=== PATIENT | male | born 1945 | race Caucasian/White ===

== ENCOUNTER 2019-01-06 08:24 | Emergency (ER) | payer OTHER, MEDICAID ==
[~2019-01-06] VITALS: Ht 172.7 cm; Wt 102.5 kg
[2019-01-06 08:38] VITALS: BP_SYST 128
[2019-01-06] MEDS ORDERED: MELA5TAB21 PO (08:49)
[2019-01-06] MEDS ORDERED: ZOLP10TA2 PO (08:49)
[2019-01-06] MEDS ORDERED: NIZCR60 TP (08:49)
[2019-01-06] MEDS ORDERED: CLOB15CR4 TP (08:49)
[2019-01-06] MEDS ORDERED: ASA81 PO (08:49)
[2019-01-06] MEDS ORDERED: TRIA15CR3 TP (08:49)
[2019-01-06] MEDS ORDERED: MIRT15TA7 PO (08:49)
[2019-01-06] MEDS ORDERED: ALBMDI INH (08:49)
[2019-01-06] MEDS ORDERED: CIPR-211 PO (08:49)
[2019-01-06] MEDS ORDERED: NACL 0.9% 1,000 ML IV ONE (09:00)
[2019-01-06] MEDS ORDERED: LORazepam 2 MG/ML VIAL (FOR ER USE) IVP ONE (09:00)
[2019-01-06] MEDS ORDERED: KETOROLAC TROMETHAMINE 30 MG VIAL IVP ONE (09:00)
[2019-01-06] MEDS ORDERED: QUET200T5 PO (09:09)
[2019-01-06] MEDS ORDERED: LOSA50TA3 PO (09:09)
[2019-01-06] MEDS ORDERED: DESVENLAFAXINE PO (09:09)
[2019-01-06] MEDS ORDERED: DICL50TA9 PO (09:09)
[2019-01-06 09:28] LABS: BASOPHILS # (AUTO) 0.1 K/uL (0.0-0.2); BASOPHILS % (AUTO) 0.9 % (0.0-2.0); EOSINOPHILS # (AUTO) 0.1 K/uL (0.0-0.4); EOSINOPHILS % (AUTO) 0.9 % (0.0-4.0); HEMATOCRIT 38.4 % (36-54); LYMPHOCYTES # (AUTO) 0.9 K/uL (1.0-5.5); LYMPHOCYTES % (AUTO) 9.3 % (20.5-51.5); MEAN CORPUSCULAR HEMOGLOBIN 31 pg (27-31); MEAN CORPUSCULAR HGB CONC 34 % (32-36); MEAN CORPUSCULAR VOLUME 91 fL (79.0-98.0); MONOCYTES # (AUTO) 0.8 K/uL (0.0-1.0); MONOCYTES % (AUTO) 8.2 % (1.7-9.3); NEUTROPHILS # (AUTO) 8.1 K/uL (1.8-7.7); NEUTROPHILS % (AUTO) 80.7 % (40.0-70.0); PLATELET COUNT (AUTO) 366 K/uL (130-430); RED BLOOD CELL COUNT(AUTO) 4.23 MIL/uL (4.2-6.2); RED CELL DISTRIBUTION WIDTH 14.2 % (9.0-15.0)
[2019-01-06 09:38] LABS: ANION GAP 9 (5-15); CALCIUM 9.4 mg/dL (8.4-11.0); CHLORIDE 101 mmol/L (98-107); CREATININE 1.59 mg/dL (0.55-1.30); GLUCOSE 120 mg/dL (70-99); POTASSIUM 4.6 mmol/L (3.5-5.1); SODIUM SERUM 136 mmol/L (136-145); UREA NITROGEN, BLOOD 18 mg/dL (8-21)
[2019-01-06 09:43] LABS: ALANINE AMINOTRANSFERASE 14 U/L (12-78); ALBUMIN 3.6 g/dL (3.4-4.8); ASPARTATE AMINOTRANSFERASE 19 U/L (10-37); TOTAL BILIRUBIN 0.5 mg/dL (0.0-1.0)
[2019-01-06] MEDS ORDERED: cefTRIAXone 1 GM IVPB PREMIX 50 ML IV ONE ×2 (11:00→11:25)
[2019-01-06 11:16] LABS: BILIRUBIN,URINE NEGATIVE (NEGATIVE); BLOOD, URINE 2+ (NEGATIVE); CLARITY/URINE SL HAZY (CLEAR); COLOR,URINE YELLOW (YELLOW); GLUCOSE,URINE NEGATIVE (NEGATIVE); KETONES,URINE NEGATIVE (NEGATIVE); LEUKOCYTE ESTERASE ,URINE 3+ (NEGATIVE); NITRITE, URINE NEGATIVE (NEGATIVE); PROTEIN URINE 1+ (NEGATIVE); UROBILINOGEN,URINE 0.2 (0.2-1.0)
[2019-01-06 11:30] LABS: BACTERIA,URINE MANY /HPF (None Seen); WBC,URINE 50-80 /HPF (0-3)
[2019-01-06 11:31] LABS: MUCUS,URINE None Seen /LPF (None Seen)
[2019-01-06 12:09] VITALS: BP_SYST 140
== END 2019-01-06 12:09 | disposition home or self-care (01) ==
LOC: SED 08:24
DX: N39.0 Urinary tract infection, site not specified (principal); I10 Essential (primary) hypertension; Z79.82 Long term (current) use of aspirin; Z79.899 Other long term (current) drug therapy
CPT/HCPCS: 36415; 71045; 80053; 81000; 83605; 84484; 85025; 85610; 85730; 87086; 87186; 93005; 96365; 96375; 99284; J0696; J1885; J2060; J7030

== ENCOUNTER 2019-03-05 11:35 | Inpatient (IN) | payer OTHER, MEDICAID ==
[~2019-03-05] VITALS: Ht 167.6 cm; Wt 88.9 kg
[2019-03-05 11:35] VITALS: BP_SYST 120
[~2019-03-05 11:35] MED LIST: ALBMDI INH; ASA81 PO; CIPR-211 PO; CLOB15CR4 TP; DESVENLAFAXINE PO; DICL50TA9 PO; LOSA50TA3 PO; MELA5TAB21 PO; MIRT15TA7 PO; NIZCR60 TP; QUET200T5 PO; TRIA15CR3 TP; ZOLP10TA2 PO
--- NOTE | 2019-03-05 11:35 | NUR ---
Patient triaged and placed in waiting room. VSS and patient appears in no acute distress at this time. Accompanied by FAMILY, awaiting available bed, and MD notified of need for MSE.
[2019-03-05] MEDS ORDERED: PIPERACILLIN/TAZO 3.38 GM in NS 50 ML IV ONE (16:00)
[2019-03-05] MEDS ORDERED: PIPERACILLIN/TAZOBACTAM 3.375 GM/VIAL (ZOSYN) IV ONE (16:21)
[2019-03-05 16:27] LABS: BASOPHILS # (AUTO) 0.1 K/uL (0.0-0.2); BASOPHILS % (AUTO) 0.5 % (0.0-2.0); EOSINOPHILS # (AUTO) 0.5 K/uL (0.0-0.4); EOSINOPHILS % (AUTO) 2.7 % (0.0-4.0); HEMATOCRIT 34.7 % (36-54); HEMOGLOBIN 11.6 g/dL (14.0-18.0); LYMPHOCYTES # (AUTO) 1.9 K/uL (1.0-5.5); MEAN CORPUSCULAR HEMOGLOBIN 28 pg (27-31); MEAN CORPUSCULAR HGB CONC 33 % (32-36); MEAN CORPUSCULAR VOLUME 85 fL (79.0-98.0); MONOCYTES # (AUTO) 1.5 K/uL (0.0-1.0); MONOCYTES % (AUTO) 8.8 % (1.7-9.3); NEUTROPHILS # (AUTO) 13.4 K/uL (1.8-7.7); PLATELET COUNT (AUTO) 489 K/uL (130-430); RED BLOOD CELL COUNT(AUTO) 4.11 MIL/uL (4.2-6.2); RED CELL DISTRIBUTION WIDTH 14.6 % (9.0-15.0); WHITE BLOOD COUNT (AUTO) 17.4 K/uL (4.8-10.8)
--- NOTE | 2019-03-05 16:27 | NUR ---
Pt moved to bed 04
--- NOTE | 2019-03-05 16:30 | NUR ---
Pt c/o back pain and elevated WBC per PMD.
[2019-03-05 16:42] LABS: ANION GAP 10 (5-15); CALCIUM 8.9 mg/dL (8.4-11.0); CHLORIDE 103 mmol/L (98-107); CREATININE 1.17 mg/dL (0.55-1.30); GLUCOSE 102 mg/dL (70-99); POTASSIUM 3.7 mmol/L (3.5-5.1); SODIUM SERUM 138 mmol/L (136-145); UREA NITROGEN, BLOOD 20 mg/dL (8-21)
[2019-03-05 16:45] LABS: INR 1.1 (0.80-1.20); PROTHROMBIN TIME 10.6 SECS (9.5-12.5)
[2019-03-05 16:47] LABS: ALANINE AMINOTRANSFERASE 18 U/L (12-78); ALBUMIN 2.6 g/dL (3.4-4.8); ASPARTATE AMINOTRANSFERASE 15 U/L (10-37); LIPASE 126 U/L (73-393); TOTAL BILIRUBIN 0.3 mg/dL (0.0-1.0)
--- NOTE | 2019-03-05 17:20 | NUR ---
Patient to ER bed 5 to gown for evaluation. Side rails up.
--- NOTE | 2019-03-05 17:40 | NUR ---
Pt medicated tolerated well. Continuing to monitor
[2019-03-05] MEDS ORDERED: DIPHENHYDRAMINE INJ 50 MG/ML VIAL IVP ONE (17:45)
[2019-03-05] MEDS ORDERED: MORPHINE 4 MG/ML INJ. SYRINGE IVP ONE (17:45)
[2019-03-05] MEDS ORDERED: PIPERACILLIN/TAZO 3.375 GM in NS 50 ML IV ONE (18:00)
--- NOTE | 2019-03-05 18:20 | NUR ---
Patient transported to radiology via gurney, accompanied by rad staff.
--- NOTE | 2019-03-05 18:35 | NUR ---
Returned from radiology, back to [facility].
--- NOTE | 2019-03-05 19:00 | NUR ---
Pt resting no acute distress noted.
[2019-03-05 19:38] LABS: BILIRUBIN,URINE NEGATIVE (NEGATIVE); BLOOD, URINE 1+ (NEGATIVE); CLARITY/URINE SL HAZY (CLEAR); COLOR,URINE YELLOW (YELLOW); GLUCOSE,URINE NEGATIVE (NEGATIVE); KETONES,URINE NEGATIVE (NEGATIVE); LEUKOCYTE ESTERASE ,URINE 3+ (NEGATIVE); NITRITE, URINE NEGATIVE (NEGATIVE); PH,URINE 5.5 (5.0-8.0); PROTEIN URINE NEGATIVE (NEGATIVE); UROBILINOGEN,URINE 0.2 (0.2-1.0)
[2019-03-05 19:50] LABS: BACTERIA,URINE MODERATE /HPF (None Seen); MUCUS,URINE None Seen /LPF (None Seen); WBC,URINE 50-80 /HPF (0-3); YEAST,URINE Moderate /HPF (None Seen)
--- NOTE | 2019-03-05 20:00 | NUR ---
Patient will be admitted to care of . Admitted to telemetry unit. Will go to room 125B. Summary report printed. Report will be given at bedside.
--- NOTE | 2019-03-05 20:10 | NUR ---
ADMISSION: The patient, ALIYA MENA, 73 y/o, M admitted by MARIA INES CUELLO MD,with the diagnosis of PYELONEPHRITIS ,TO 130 A
[2019-03-05 21:00] VITALS: BP_SYST 122
[2019-03-05] MEDS ORDERED: ALBUTEROL SULFATE 0.083% 2.5 MG/3 ML VIAL.NEB INH PRN (21:00)
[2019-03-05] MEDS ORDERED: CLOBETASOL PROPIONATE 0.05% 15 GM CREAM..G. TP SCH (21:00)
[2019-03-05] MEDS: QUEtiapine FUMARATE 200 MG TAB.SR.24H PO SCH (21:00)
[2019-03-05] MEDS ORDERED: ACETAMINOPHEN 325 MG TABLET PO PRN (21:00)
[2019-03-05] MEDS: MELATONIN 5 MG PO SCH (21:00)
[2019-03-05] MEDS ORDERED: HYDROcodone/ACETAMIN 5-325 MG TAB (NORCO/ VICODIN) PO PRN (21:00)
[2019-03-05] MEDS ORDERED: ONDANSETRON HCL 4 MG/2 ML VIAL IVP PRN (21:00)
--- NOTE | 2019-03-05 21:18 | NUR ---
patient admitted to 130 bed a . fixed in bed and made comfortable. offensive coordinator applied. with call light within reach.no furthner chest pain claimed
[2019-03-05 21:34] VITALS: BP_SYST 110
[2019-03-05] MEDS ORDERED: NORMAL SALINE 5 ML DISP.SYRIN IVF SCH (22:00)
[2019-03-05] MEDS: MIRTAZAPINE 15 MG TABLET PO SCH (22:02)
[2019-03-05] MEDS: ZOLPIDEM TARTRATE 5 MG TABLET PO PRN (22:03)
[2019-03-05] MEDS: NORMAL SALINE 5 ML DISP.SYRIN IVF SCH (22:04)
[2019-03-05] MEDS ORDERED: LEVOFLOXACIN 500 MG/D5W 100 ML IV ONE (22:17)
--- NOTE | 2019-03-05 22:41 | NUR ---
seroquel xr not available,. will inform physician about it,
[2019-03-05 22:50] VITALS: BP_SYST 110
[2019-03-05] MEDS: LEVOFLOXACIN 500 MG/D5W 100 ML IV SCH (22:59)
[2019-03-05] MEDS ORDERED: FLU VACC TS2019(65UP)/MF59C/PF 45 MCG/0.5 ML SYRINGE I.M. PRN (23:30)
--- NOTE | 2019-03-06 00:51 | NUR ---
CONSULTATION PAGED/CALLED Reason for Consultation: PYELONEHRITIS Person Who was Notified: MJ Consulting Physician: CHUCK Supervisor Shearing Specialty: ID Ordering Physician: Bertha CUELLO
--- NOTE | 2019-03-06 01:02 | NUR ---
DR CUELLO WITH ORDERS TO DISCONTINUE THE PRESENT CASPER CATHETER AND REINSERT A NEW ONE
[2019-03-06] MEDS: LORazepam 2 MG/ML VIAL IVP PRN (01:36)
--- NOTE | 2019-03-06 01:38 | NUR ---
stat CONSULTATION PAGED/CALLED Reason for Consultation:kandy alaniz Person Who was Notified: clive Consulting Physician: leann Spangler Roll Edge Stitcher Hand Specialty: urology Ordering Physician: ashlie cheema Addendum: 03/06/19 at 0142 by Carey Ware CNA reason for accident removal super pubic cather . the consult will be for Kandy Alaniz
--- NOTE | 2019-03-06 01:40 | NUR ---
SUPRAPUBIC CATHETER WAS ACCIDENTALLY PULLED OUT AND DR CUELLO PAGE AND ORDERED A UROLOGY CONSULT. WITH ORDERS FOR UROLOGY CONSULT DR LEMOS. AND PAGED, AWAITING RESPONSE
[2019-03-06 01:42] VITALS: BP_SYST 142
[2019-03-06 02:06] VITALS: BP_SYST 123
--- NOTE | 2019-03-06 02:09 | NUR ---
paged paged the doctor talent development consultant for Lex Spangler, who is Jitendra Moran his PA regarding stat consult
--- NOTE | 2019-03-06 02:36 | NUR ---
MODESTO HERNANDEZ MA CALLED BACK AND INFORMED THAT THE SUPRAPUBIC CATHETER WAS ACCIDENTALLY DISCONTINUED AND PATIENT HAS NO CATHETER AT THIS TIME. WILL INFORM DR LEMOS AND WILL REINSERT THE SUPRAPUBIC CATHETER IN AM.
[2019-03-06 04:00] VITALS: BP_SYST 135
[2019-03-06] MEDS: HYDROcodone/ACETAMIN 10-325 MG TAB PO PRN ×3 (05:04→15:32)
[2019-03-06] MEDS: NORMAL SALINE 5 ML DISP.SYRIN IVF SCH ×3 (05:05→22:05)
--- NOTE | 2019-03-06 05:06 | NUR ---
cleaned and kept dry,noted the urine coming from the suprapubic stoma and cleaned and kept dry. bladder scan done with less that 50 ml of urine in the bladder,. pain claimed to the penile tip and patient claims he has this pain even before, norco dose given for pain.
[2019-03-06 06:23] LABS: ALANINE AMINOTRANSFERASE 16 U/L (12-78); ALBUMIN 2.2 g/dL (3.4-4.8); ASPARTATE AMINOTRANSFERASE 12 U/L (10-37); CALCIUM 8.3 mg/dL (8.4-11.0); CHLORIDE 105 mmol/L (98-107); GLUCOSE 101 mg/dL (70-99); PHOSPHORUS 3.9 mg/dL (2.7-4.5); POTASSIUM 3.8 mmol/L (3.5-5.1); SODIUM SERUM 140 mmol/L (136-145); TOTAL BILIRUBIN 0.3 mg/dL (0.0-1.0); UREA NITROGEN, BLOOD 17 mg/dL (8-21)
[2019-03-06 06:25] LABS: BASOPHILS # (AUTO) 0.1 K/uL (0.0-0.2); BASOPHILS % (AUTO) 0.4 % (0.0-2.0); EOSINOPHILS # (AUTO) 0.5 K/uL (0.0-0.4); EOSINOPHILS % (AUTO) 3.8 % (0.0-4.0); HEMATOCRIT 29.9 % (36-54); HEMOGLOBIN 10.1 g/dL (14.0-18.0); LYMPHOCYTES # (AUTO) 1.1 K/uL (1.0-5.5); MEAN CORPUSCULAR HEMOGLOBIN 28 pg (27-31); MEAN CORPUSCULAR HGB CONC 34 % (32-36); MEAN CORPUSCULAR VOLUME 84 fL (79.0-98.0); MONOCYTES # (AUTO) 1.1 K/uL (0.0-1.0); MONOCYTES % (AUTO) 8.8 % (1.7-9.3); NEUTROPHILS # (AUTO) 9.6 K/uL (1.8-7.7); PLATELET COUNT (AUTO) 380 K/uL (130-430); RED BLOOD CELL COUNT(AUTO) 3.56 MIL/uL (4.2-6.2); RED CELL DISTRIBUTION WIDTH 14.6 % (9.0-15.0); WHITE BLOOD COUNT (AUTO) 12.3 K/uL (4.8-10.8)
[2019-03-06 06:34] LABS: ANION GAP 8 (5-15)
--- NOTE | 2019-03-06 07:21 | NUR ---
TAX CONSULTANT CALLED AND GIVING INSTRUCTIONS TO PLACE THE SUPRAPUBIC CATHETER BUT COFFEE SAMPLER IN PLACING ONE BEFORE AND PATIENT CLAIMS THAT WHEN IT WAS PLACED THEY HAD TO GIVEN HIM PAIN MEDICATION IT IS HARD TO PLACE,WILL FOLLOW UP WITHMTHE CALL
--- NOTE | 2019-03-06 07:48 | NUR ---
REPORT GIVEN TO THE DAY SHIFT RN TO FOLLOW UP WITH THE CALL TO DR LEMOS THE SUPRAPUBIC CATHETER IS NOT YET INSERTED AND NURSING MOTORBOAT MECHANIC INBOARD TALKED TO THE COMMERCIAL CARPENTER THAT WE WILL CALL IF SUPRAPUBIC CATHETER IS NOT INSERTED,
[2019-03-06 08:00] VITALS: BP_SYST 104
--- NOTE | 2019-03-06 08:00 | NUR ---
UROLOGIST, DR Brie LEMOS WAS CALLED RE: TO INSERT THE SUPRAPUBIC CATHETER. SPOKE TO
--- NOTE | 2019-03-06 08:50 | NUR ---
CONSULTATION PAGED/CALLED Reason for Consultation: [] PYELONEPHRITIS Person Who was Notified: [] BORIS Consulting Physician: [] DR Gold [employer] Director Independent Specialty: [] UROLOGIST Ordering Physician: [] DR Megan CUELLO
[2019-03-06] MEDS: DESVENLAFAXINE PO SCH (09:00)
[2019-03-06] MEDS: KETOCONAZOLE 2%, 60 GM TOPICAL CREAM. (NIZORAL) TP SCH (09:00)
[2019-03-06] MEDS: CLOBETASOL PROPIONATE 0.05% 15 GM CREAM..G. TP SCH ×2 (09:00→20:38)
[2019-03-06] MEDS: TRIAMCINOLONE ACETONIDE 0.1% 15 GM OINT..GM. TP SCH (09:00)
--- NOTE | 2019-03-06 10:10 | NUR ---
Nutrition Update Danie Scale 14 noted. Pt admitted for pyelonephritis. Diet: 2 gm Na BMI: 31.7 kg/m2 RD to follow per nutrition care standards.
[2019-03-06] MEDS: LOSARTAN POTASSIUM 50 MG TABLET (COZAAR) PO SCH (10:36)
[2019-03-06] MEDS: ASPIRIN 81 MG TAB.CHEW PO SCH (10:37)
--- NOTE | 2019-03-06 11:27 | NUR ---
Re-insert a catheter via Nephrostomy: Patient is awake, alert, oriented, and agrees to get a new nephrostomy tube re-inserted. Insert a Basurto catheter # 16Fr through the mid lower abdomen nephrostomy with aseptic technique with no any resistance. Patient tolerates well. Got Yellow clear with sediment urine out put. Pain Pill is given prior to the procedure. Will continue monitor.
[2019-03-06 12:00] VITALS: BP_SYST 143
--- NOTE | 2019-03-06 12:17 | NUR ---
UROLOGY CONSULT WAS CALLED AGAIN TO DR MIGUELINA LEMOS, REMINDING HIM TO FOLLOW UP THE PT EVEN AFTER, SHEKHAR, CHARGE NURSE PUT IN A CASPER. SPOKE TO ALTON
--- NOTE | 2019-03-06 12:50 | NUR ---
Dr. Spangler declines to see the patient. Ask his office what is the reason, if it is because the insurance< Medicare A&B> and she said no, just he can not see the patient. Will make Megan Ventura aware.
--- NOTE | 2019-03-06 14:28 | NUR ---
Box Worker: Received a "Suicidal Risk" referral. DIGITAL IMAGER met with pt. at bedside. He was able to participate in this interview, was a good historian and spoke in clear sentences. DIGITAL IMAGER asked pt. who was in his supportive blackfeet. Pt stated he does not know where his brother is and his sister had passed a few years back. Pt. lives in a home with 3 other adults. He also has a girlfriend who checks up on him. Additionally, he has a caregiver paid for through in home health services. This caregiver comes M-F for about 4 hours a day. Pt. is ambulatory and can perform daily self care tasks. When asked, pt stated he has been Dx. with both Anxiety and Depression. He stated he sees Arik Rivera [facility] in on a monthly basis, located at [address] [place] [address] with [facility]. His last apt. was 02/06 which he kept. His next scheduled apt was for today, 03/05/19. Pt. stated he no longer takes any meds. for depression or anxiety at DrJae request. DIGITAL IMAGER asked pt. if he has ever felt like he wanted to harm himself in any way. Pt. confirmed he did feel this way yesterday. He stated he did not have a plan. He was just tired of being sick and wanted the pain to stop, tired of life and tire of not being able to do much. Pt. denied currently wanting to harm himself. He stated he was feeling physically better. DIGITAL IMAGER called and left a msg. for Mr. Arik Rivera to notify him that pt. is missing his apt due to being admitted to [facility] and DIGITAL IMAGER will assist him in making a follow up apt. once discharge is ordered. DIGITAL IMAGER will remain available as needed.
--- NOTE | 2019-03-06 16:44 | NUR ---
Uro round: Dr. Spangler<Urologist> is visiting the patient in the room for the consult. He checks on the Suprapubic catheter, and states it is good, draining well. There is not thing else need to be done, just F/U in his office after discharge from the hospital.
[2019-03-06 17:14] VITALS: BP_SYST 115
--- NOTE | 2019-03-06 19:40 | NUR ---
PM SHIFT ASSESSMENT Pt is alert and oriented. Pt is on RA, RR even and unlabored. Skin warm and dry. IV to RAC, no signs of infiltration noted. Suprapubic catheter noted, draining to gravity. Safety precautions in place, call light within reach. Will continue to monitor.
[2019-03-06] MEDS ORDERED: GENTAMICIN 100 mg/50 mL NS 50 ML IV SCH (20:00)
[2019-03-06] MEDS ORDERED: FLUCONAZOLE 200 MG TABLET (DIFLUCAN) ONE (20:05)
[2019-03-06] MEDS: FLUCONAZOLE 200 MG TABLET (DIFLUCAN) PO SCH (20:22)
[2019-03-06] MEDS: MIRTAZAPINE 15 MG TABLET PO SCH (20:23)
[2019-03-06] MEDS ORDERED: GENTAMICIN 100 mg/50 mL NS 50 ML IV ONE (20:24)
[2019-03-06] MEDS: QUEtiapine FUMARATE 200 MG TAB.SR.24H PO SCH (20:24)
[2019-03-06] MEDS: ZOLPIDEM TARTRATE 5 MG TABLET PO PRN (20:38)
[2019-03-06] MEDS: MELATONIN 5 MG PO SCH (21:00)
[2019-03-06] MEDS: LEVOFLOXACIN 500 MG/D5W 100 ML IV SCH (22:04)
[2019-03-07 00:27] VITALS: BP_SYST 107
--- NOTE | 2019-03-07 03:10 | NUR ---
Pt resting in bed bed. VSS. Call light within reach. Will continue to monitor.
[2019-03-07] MEDS: NORMAL SALINE 5 ML DISP.SYRIN IVF SCH ×2 (06:27→21:36)
[2019-03-07 06:41] LABS: BASOPHILS % (AUTO) 0.3 % (0.0-2.0); EOSINOPHILS # (AUTO) 0.2 K/uL (0.0-0.4); EOSINOPHILS % (AUTO) 1.6 % (0.0-4.0); HEMATOCRIT 29.5 % (36-54); HEMOGLOBIN 9.8 g/dL (14.0-18.0); LYMPHOCYTES # (AUTO) 1.2 K/uL (1.0-5.5); LYMPHOCYTES % (AUTO) 8.3 % (20.5-51.5); MEAN CORPUSCULAR HEMOGLOBIN 28 pg (27-31); MEAN CORPUSCULAR HGB CONC 33 % (32-36); MEAN CORPUSCULAR VOLUME 84 fL (79.0-98.0); MONOCYTES # (AUTO) 1.1 K/uL (0.0-1.0); MONOCYTES % (AUTO) 7.9 % (1.7-9.3); NEUTROPHILS # (AUTO) 11.7 K/uL (1.8-7.7); NEUTROPHILS % (AUTO) 81.9 % (40.0-70.0); PLATELET COUNT (AUTO) 364 K/uL (130-430); RED BLOOD CELL COUNT(AUTO) 3.51 MIL/uL (4.2-6.2); RED CELL DISTRIBUTION WIDTH 14.5 % (9.0-15.0); WHITE BLOOD COUNT (AUTO) 14.3 K/uL (4.8-10.8)
[2019-03-07 06:57] LABS: ANION GAP 7 (5-15); CHLORIDE 102 mmol/L (98-107); GLUCOSE 116 mg/dL (70-99); SODIUM SERUM 134 mmol/L (136-145); UREA NITROGEN, BLOOD 21 mg/dL (8-21)
--- NOTE | 2019-03-07 07:15 | NUR ---
ENDORSEMENT Pt care endorsed to dayshift RN using nursing SBAR.
[2019-03-07 07:30] LABS: CALCIUM 8.5 mg/dL (8.4-11.0); ERYTHROCYTE SEDIMENTATION RATE 56 MM/HR (0-15)
--- NOTE | 2019-03-07 08:00 | NUR ---
RN INITIAL NOTES RECEIVED PATIENT IN BED ALERT AWAKE AND VERBAL NO DISTRESS NO COMPLAIN OF PAIN VERIFIED HOW IS HE FEELING TODAY STATED IM FEELING OK VERBALIZED THAT HE DONT PLAN OF HURTING HIMSELF AND HE SLEEP GOOD LAST NIGHT , WIH IV HL TO RT AC , SUPRAPUBIC CATH INTACT NO SIGN OF HEMATURIA CLEAR URINE OUTPUT PATIENT HE HAD SUPRAPUBIC CATH FOR A LONG TIME, WILL CONT TO MONITOR
[2019-03-07 08:21] LABS: C-REACTIVE PROTEIN QUANT 14.4 mg/dL (0-0.5)
[2019-03-07] MEDS: ASPIRIN 81 MG TAB.CHEW PO SCH (08:58)
[2019-03-07] MEDS: DICLOFENAC SODIUM 25 MG TABLET.DR PO PRN (08:58)
[2019-03-07] MEDS: KETOCONAZOLE 2%, 60 GM TOPICAL CREAM. (NIZORAL) TP SCH (08:59)
[2019-03-07] MEDS: CLOBETASOL PROPIONATE 0.05% 15 GM CREAM..G. TP SCH ×2 (08:59→20:53)
[2019-03-07 09:00] VITALS: BP_SYST 100
[2019-03-07] MEDS: LOSARTAN POTASSIUM 50 MG TABLET (COZAAR) PO SCH (09:00)
[2019-03-07] MEDS: TRIAMCINOLONE ACETONIDE 0.1% 15 GM OINT..GM. TP SCH (09:00)
[2019-03-07] MEDS: DESVENLAFAXINE PO SCH (09:00)
[2019-03-07] MEDS: FLUCONAZOLE 200 MG TABLET (DIFLUCAN) PO SCH (09:03)
--- NOTE | 2019-03-07 10:00 | NUR ---
FLU VACCINE PATIENT SAID HE IS OK TO HAVE FLU SHOT WILL GIVE AND WILL MONITOR
--- NOTE | 2019-03-07 12:00 | NUR ---
ASLEEP PATIENT NEEDS ATTENDED
[2019-03-07 12:30] VITALS: BP_SYST 102
[2019-03-07] MEDS: HYDROcodone/ACETAMIN 10-325 MG TAB PO PRN (13:28)
--- NOTE | 2019-03-07 14:00 | NUR ---
ROUNDS PATIENT EFFECTIVE WITH NORCO PAIN MEDS GIVEN
--- NOTE | 2019-03-07 14:50 | NUR ---
DC PLANNING: CM SPOKE WITH PATIENT AT BEDSIDE REGARDING DC PLANNING TO SNF. PATIENT WAS AGREEABLE TO DR. CUELLO PREFERRED SNF EXCEPT ONE IN [place], [place]. PATIENT AGREEABLE TO [facility]. ALSO, ANY SNF AROUND [place], [place].
--- NOTE | 2019-03-07 15:41 | NUR ---
CONSULTATION PAGED/CALLED Reason for Consultation: BELEN Person Who was Notified: DARIEL Consulting Physician: SUPERVISOR IRRIGATION FOR Toy Assembly Supervisor Specialty: Ordering Physician:
--- NOTE | 2019-03-07 16:20 | NUR ---
ASLEEP PATIENT SLEEPING AT THIS TIME
--- NOTE | 2019-03-07 16:27 | NUR ---
DC PLANNING: CLINICAL PACKET HAS BEEN FAXED TO: [facility]. [facility] [place] [facility]. [facility] [place] CM/DCP TO FOLLOW UP NEEDED
--- NOTE | 2019-03-07 16:36 | NUR ---
Dietitian Recommendations 1. Continue 2gm Na diet 2. Ensure Clear BID. This will provide 200kcal and 7gmPro per serving. Consider increasing ONS at follow up if PO intake does not improve. Please see Nutrition Assessment for details. LT, RD
[2019-03-07 16:57] VITALS: BP_SYST 94
--- NOTE | 2019-03-07 18:07 | NUR ---
RN ENDORSEMENT PATIENT CONT WITH PLAN OF CARE STILL WITH URGENCY OF DIARRHEA , STOOL SENT TO LAB AND WILL FOLLOW UP CONT WITH IV HYDRATION AND ADJUSTED D/T LEEANN AND DR CUELLO AWARE ORDERED FOR SCD , CONT WITH BREATHING TX AND PATIENT STILL WITH NON PRODUCTIVE COUGH BUT LOOSEN UP WITH HHN , NO COMPLAIN OF DISTRESS BUT STILL WITH ABDOMINAL DISCOMFORT , REDNESS TOT HE RECTUM D/T DIARRHEA. WILL FOLLOW UP WITH C DIFF CLEARANCE RESULT Addendum: 03/07/19 at 1816 by Kiana Le RN ERROR IN CHARTING THIS BELONG TO OTHER PATIENT
--- NOTE | 2019-03-07 18:16 | NUR ---
ENDORSEMENT WILL CONT CARE PATIENT CARE , PATIENT STILL TO COLLECT RANDOM URINE ONCE WITH NEW SPECIMEN ATTENDED
--- NOTE | 2019-03-07 19:30 | NUR ---
PM SHIFT ASSESSMENT Pt in bed with eyes open resting comfortably, no signs of acute distress or discomfort noted. Pt on RA, even and unlabored breathing. Skin warm and dry. IV to pt's R AC patent, c/d/i. Suprapubic cath noted draining urine to gravity. Pt doesn't verbalize any needs at this time. Bed is locked and in lowest position, call light within reach, will cont to monitor pt.
[2019-03-07 20:00] VITALS: BP_SYST 91
[2019-03-07] MEDS ORDERED: SODIUM PHOSPHATE,MONO-DIBASIC 133 ML ENEMA RC PRN (20:45)
[2019-03-07] MEDS: QUEtiapine FUMARATE 200 MG TAB.SR.24H PO SCH (20:50)
--- NOTE | 2019-03-07 20:50 | NUR ---
Pt requested to be clean at this time. Provided patient with mild soap and water and some towels and assisted the pt with cleaning. Pt tolerated well, will cont to monitor pt.
[2019-03-07] MEDS: DOCUSATE SODIUM 100 MG CAPSULE PO SCH (20:51)
[2019-03-07] MEDS: MIRTAZAPINE 15 MG TABLET PO SCH (20:51)
[2019-03-07] MEDS: MELATONIN 5 MG PO SCH (20:53)
[2019-03-07] MEDS: LEVOFLOXACIN 500 MG/D5W 100 ML IV SCH (20:53)
[2019-03-07] MEDS: ZOLPIDEM TARTRATE 5 MG TABLET PO PRN (20:56)
--- NOTE | 2019-03-07 22:30 | NUR ---
Pt in bed with eyes closed resting comfortably. No signs of acute distress or discomfort noted. Bed is locked and in lowest position, call light within reach, will cont to monitor.
[2019-03-08] VITALS (7 sets, daily range): BP systolic 94–121
--- NOTE | 2019-03-08 00:15 | NUR ---
Pt in bed with eyes closed resting comfortably. No signs of acute distress or discomfort noted. Pt on RA, tolerating well with even and unlabored breathing. Bed is locked and in lowest position, call light within reach, will cont to monitor pt.
--- NOTE | 2019-03-08 03:34 | NUR ---
Pt resting in bed, no signs of acute distress or discomfort noted. Bed is locked and in lowest position, call light within reach, will cont to monitor pt.
[2019-03-08] MEDS: NORMAL SALINE 5 ML DISP.SYRIN IVF SCH (05:30)
[2019-03-08 06:39] LABS: BASOPHILS % (AUTO) 0.3 % (0.0-2.0); EOSINOPHILS # (AUTO) 0.5 K/uL (0.0-0.4); EOSINOPHILS % (AUTO) 4.4 % (0.0-4.0); HEMATOCRIT 27.7 % (36-54); HEMOGLOBIN 9.5 g/dL (14.0-18.0); LYMPHOCYTES # (AUTO) 1.3 K/uL (1.0-5.5); LYMPHOCYTES % (AUTO) 12.4 % (20.5-51.5); MEAN CORPUSCULAR HEMOGLOBIN 29 pg (27-31); MEAN CORPUSCULAR HGB CONC 34 % (32-36); MEAN CORPUSCULAR VOLUME 83 fL (79.0-98.0); MONOCYTES # (AUTO) 0.8 K/uL (0.0-1.0); MONOCYTES % (AUTO) 7.6 % (1.7-9.3); NEUTROPHILS # (AUTO) 7.9 K/uL (1.8-7.7); NEUTROPHILS % (AUTO) 75.3 % (40.0-70.0); PLATELET COUNT (AUTO) 325 K/uL (130-430); RED BLOOD CELL COUNT(AUTO) 3.32 MIL/uL (4.2-6.2); RED CELL DISTRIBUTION WIDTH 14.8 % (9.0-15.0); WHITE BLOOD COUNT (AUTO) 10.5 K/uL (4.8-10.8)
--- NOTE | 2019-03-08 07:05 | NUR ---
ENDORSEMENT Report given to [facility] dayshift nurse using SBAR format and pt care was endorsed. No signs of acute distress or discomfort noted.
[2019-03-08 07:21] LABS: BILIRUBIN,URINE NEGATIVE (NEGATIVE); BLOOD, URINE 2+ (NEGATIVE); COLOR,URINE YELLOW (YELLOW); GLUCOSE,URINE NEGATIVE (NEGATIVE); KETONES,URINE NEGATIVE (NEGATIVE); LEUKOCYTE ESTERASE ,URINE 3+ (NEGATIVE); NITRITE, URINE NEGATIVE (NEGATIVE); PH,URINE 5.5 (5.0-8.0); PROTEIN URINE NEGATIVE (NEGATIVE); UROBILINOGEN,URINE 0.2 (0.2-1.0)
[2019-03-08 07:26] LABS: CLARITY/URINE HAZY (CLEAR)
[2019-03-08 08:00] LABS: SODIUM SERUM 140 mmol/L (136-145)
--- NOTE | 2019-03-08 08:00 | NUR ---
RN INITIAL NOTES RECEIVED PATIENT IN BED SLEEPING NO DISTRESS IV HL INTACT RESP EVEN AND UNLABORED, PATIENT SUPRAPUBIC CATH INTACT DRAINING CLEAR YELLOW OUTPUT , NOTED EVEN RISE AND FALL OF THE CHEST, WITH BIG ABDOMEN , PATIENT STATED THAT HE'S HAVING URINE OUTPUT THRU HIS PENIS , WILL REFER PATIENT TO THE UROLOGY WHEN HE COMES VISIT PATIENT , WILL INFORM ATTENDING , PATIENT GETTING DSS AT THIS TIME , WILL MONITOR BM
[2019-03-08 08:01] LABS: ANION GAP 7 (5-15); CALCIUM 8.9 mg/dL (8.4-11.0); CHLORIDE 106 mmol/L (98-107); GLUCOSE 105 mg/dL (70-99); UREA NITROGEN, BLOOD 31 mg/dL (8-21)
[2019-03-08 08:12] LABS: ERYTHROCYTE SEDIMENTATION RATE 48 MM/HR (0-15)
[2019-03-08 08:19] LABS: BACTERIA,URINE MODERATE /HPF (None Seen); MUCUS,URINE 1+ /LPF (None Seen); WBC,URINE >100 /HPF (0-3)
[2019-03-08] MEDS: DESVENLAFAXINE PO SCH (09:00)
[2019-03-08] MEDS: DOCUSATE SODIUM 100 MG CAPSULE PO SCH (09:08)
[2019-03-08] MEDS: ASPIRIN 81 MG TAB.CHEW PO SCH (09:09)
[2019-03-08] MEDS: DICLOFENAC SODIUM 25 MG TABLET.DR PO PRN (09:09)
[2019-03-08] MEDS: FLUCONAZOLE 200 MG TABLET (DIFLUCAN) PO SCH (09:09)
[2019-03-08] MEDS: TRIAMCINOLONE ACETONIDE 0.1% 15 GM OINT..GM. TP SCH (09:10)
[2019-03-08] MEDS: LOSARTAN POTASSIUM 50 MG TABLET (COZAAR) PO SCH (09:14)
[2019-03-08] MEDS: KETOCONAZOLE 2%, 60 GM TOPICAL CREAM. (NIZORAL) TP SCH (09:16)
[2019-03-08 09:32] LABS: C-REACTIVE PROTEIN QUANT 13.6 mg/dL (0-0.5)
--- NOTE | 2019-03-08 10:52 | NUR ---
DR LEMOS /UROLOGIST PATIENT INFORMED TO DR LEMOS REGARDING URINE OUTPUT COMING OUT FROM THE PENIS WITH MINIMAL AMOUNT BUT ALSO WITH ABOUT 400 CC OF CLEAR OUTPUT TO THE SUPRAPUBIC CATH , PER DR LEMOS TO IRRIGATE THE SUPRAPUBIC CATH THEN IF ITS PATENT ITS OK AND IF ITS CLOGGED TO CALL HIM BACK AGAIN .
[2019-03-08] MEDS ORDERED: FLUCONAZOLE 100 mg/ NS 50 ML IV SCH (12:00)
--- NOTE | 2019-03-08 12:23 | NUR ---
SUPRAPUBIC CATH IRRIGATION PATIENT SUPRAPUBIC CATH IRRIGATED AND ITS PATENT NO SIGN OF CLOG, PATIENT INFORMED AND HE IS AWARE THAT WHEN HE IS DC HE WILL NEED TO FOLLOW UP WITH UROLOGIST
--- NOTE | 2019-03-08 13:17 | NUR ---
ATTENDING MD DR Megan CUELLO WAS CALLED RE: AN APPROVAL FOR DC TO HOME. SPOKE TO BABATUNDE.
--- NOTE | 2019-03-08 14:00 | NUR ---
DR CUELLO CAME PAT SEEN BY DR CUELLO INFORMED PLAN OF CARE TO SNF FOR REHAB PATIENT AGREED
--- NOTE | 2019-03-08 14:00 | NUR ---
DR CUELLO CAME PATIENT SEEN BT D
[2019-03-08] MEDS: LORazepam 2 MG/ML VIAL IVP PRN (14:41)
--- NOTE | 2019-03-08 16:26 | NUR ---
PATIENT ROUNDS EATING ICE CREAM RIGHT NOW
[2019-03-08 17:29] LABS: URINE SODIUM, RANDOM 24 mmol/L (40-220)
--- NOTE | 2019-03-08 17:55 | NUR ---
LETI CASAREZ SAID TO WAIT FOR THE AMBULANCE CARPENTER SUPERVISOR AND SHE ARRANGED THE TRANSPORT
[2019-03-08] MEDS: CLOBETASOL PROPIONATE 0.05% 15 GM CREAM..G. TP SCH (18:03)
--- NOTE | 2019-03-08 18:43 | NUR ---
Discharge Planning: Received orders D/C to SNF, pt. signed choice form and was agreeable to accepting facility, [facility]. Ph for report, . Room 14B, [facility] to set up transportation. Wheel chair pickup with [facility]. endorsed to Rn. Confirmed with Rn station, pt. is being picked up now.
--- NOTE | 2019-03-08 18:43 | NUR ---
D/C Patient Patient given medication reconciliation form and D/C instructions. Exit Care provided. Patient verbalized understanding. MD discussed with patient the results and treatment provided.non Ambulatory at this time patient preferes to stay in bed but used fww home. Patient in stable condition, ID band removed. IV catheter removed, intact and dressing applied, no active bleeding. meds reconcilled and will cont with po atb report givento Ed RN made aware that patient needs to follow up with Urology and advised staff software engineer to call nora once patient in the facility provided phone no. emt made aware Patient educated on pain management. All belongings sent with patient.
== END 2019-03-08 19:00 | DRG 871 ==
LOC: SED 11:35 → STU 18:32 → SMU 03-06 18:00
PROVIDERS: ADMIT Preventive Medicine Preventive Medicine/Occupational Environmental Medicine; ATTEND Preventive Medicine Preventive Medicine/Occupational Environmental Medicine
DX: A41.9 Sepsis, unspecified organism (principal); E43 Unspecified severe protein-calorie malnutrition; T83.020A Displacement of cystostomy catheter, initial encounter; N10 Acute pyelonephritis; E87.1 Hypo-osmolality and hyponatremia; N17.9 Acute kidney failure, unspecified; D64.9 Anemia, unspecified; E83.39 Other disorders of phosphorus metabolism; E88.09 Other disorders of plasma-protein metabolism, not elsewhere classified; J45.909 Unspecified asthma, uncomplicated; F41.9 Anxiety disorder, unspecified; B37.9 Candidiasis, unspecified; R73.9 Hyperglycemia, unspecified; N18.9 Chronic kidney disease, unspecified; I12.9 Hypertensive chronic kidney disease with stage 1 through stage 4 chronic kidney disease, or unspecified chronic kidney disease; D47.3 Essential (hemorrhagic) thrombocythemia; N40.1 Benign prostatic hyperplasia with lower urinary tract symptoms; R33.8 Other retention of urine; F29 Unspecified psychosis not due to a substance or known physiological condition; Z90.49 Acquired absence of other specified parts of digestive tract; Z87.440 Personal history of urinary (tract) infections; Z79.82 Long term (current) use of aspirin; Z79.899 Other long term (current) drug therapy; Y84.6 Urinary catheterization as the cause of abnormal reaction of the patient, or of later complication, without mention of misadventure at the time of the procedure; Y92.89 Other specified places as the place of occurrence of the external cause
CPT/HCPCS: 36415; 71045; 80048; 80053; 81000-TC; 82570-TC; 83605; 83690-TC; 83735-TC; 84100-TC; 84302-TC; 85025; 85610-TC; 85651-TC; 86140; 87040-TC; 87086; 93005; 96365; 96375; 99285; G0378; J1200; J1450; J1580; J1956; J2060; J2270; J2543